=== PATIENT | female | born 1985 | race Caucasian/White ===

== ENCOUNTER 2016-10-14 23:52 | Emergency (ER) | payer MEDICAID, OTHER, SELFPAY ==
[~2016-10-14] VITALS: Ht 154.9 cm; Wt 66.7 kg
[~2016-10-14 23:52] MED LIST: FOLI1TAB86 PO; MAGICMW SS; MULTTAB6 PO; NO MEDS; NYST50SS PO; RISP0.5T3 PO; THIA100T PO; TRAZ50TA2 PO; ZIPR20INJ PO; ZOLO50TA PO
[2016-10-14 23:53] VITALS: BP 136/78
[2016-10-15] MEDS ORDERED: FLAG500T PO (00:09)
[2016-10-15] MEDS ORDERED: NEXP1IMP SC (00:09)
[2016-10-15] MEDS ORDERED: FLUORESCEIN OPHTH 1 MG STRIP OD ONE (01:15)
[2016-10-15] MEDS ORDERED: PROPARACAINE 0.5% OPHTH SOL 15ML OU ONE (01:15)
[2016-10-15] MEDS ORDERED: ACETAMINOPHEN TAB 650MG DOSE (2X325MG) PO ONE (01:15)
== END 2016-10-15 03:58 | disposition home or self-care (01) ==
LOC: M ED 10-15 01:25
DX: S05.01XA Injury of conjunctiva and corneal abrasion without foreign body, right eye, initial encounter (principal); X58.XXXA Exposure to other specified factors, initial encounter; Y92.099 Unspecified place in other non-institutional residence as the place of occurrence of the external cause; Y93.89 Activity, other specified; Y99.9 Unspecified external cause status

== ENCOUNTER → 2017-08-07 | Outpatient (CLI) | payer MEDICAID, OTHER | LOC: M LRY 13:46 | DX: M79.89 Other specified soft tissue disorders (principal) ==

== ENCOUNTER 2017-12-16 07:30 | Inpatient (IN) | payer OTHER, MEDICAID ==
[2017-12-16] MEDS: NS 1,000 ML IV (08:15)
[2017-12-16 08:17] LABS: HEMATOCRIT 37.4 % (36.0-47.0); HEMOGLOBIN 13.2 g/dl (12.0-15.5); MEAN CORPUSCULAR HEMOGLOBIN 33.4 pg (27.0-33.0); MEAN CORPUSCULAR HGB CONC 35.3 g/dl (32.0-36.5); MEAN CORPUSCULAR VOLUME 94.7 fl (80.0-96.0); PLATELET COUNT, AUTOMATED 263 10^3/uL (150-450); RED BLOOD COUNT 3.95 10^6/uL (4.00-5.40); RED CELL DISTRIBUTION WIDTH 13.6 % (11.5-14.5); WHITE BLOOD COUNT 14.8 10^3/uL (4.0-10.0)
[2017-12-16] MEDS ORDERED: ISOVUE-370 76% 100ML VIAL (Q9967) As Ordered (08:31)
[2017-12-16 08:37] LABS: CONTROL LINE HCG INT CTR LINE PRESENT; HCG, SERUM QUALITATIVE NEGATIVE (NEGATIVE)
[2017-12-16 08:42] LABS: AMPHETAMINES LEVEL URINE NEGATIVE (NEGATIVE); BARBITURATES URINE NEGATIVE (NEGATIVE); BENZODIAZEPINES URINE NEGATIVE (NEGATIVE); CANNABINOIDS URINE NEGATIVE (NEGATIVE); COCAINE METABOLITE URINE NEGATIVE (NEGATIVE); METHADONE URINE NEGATIVE (NEGATIVE); OPIATES URINE NEGATIVE (NEGATIVE); PHENCYCLIDINE URINE NEGATIVE (NEGATIVE)
[2017-12-16] MEDS: ADACEL/BOOSTRIX VACCINE (DIPHTH/PERTUSS/ACELL/TETANUS)0.5ML SYR (90715) IM (08:44)
[2017-12-16 08:53] LABS: ALBUMIN 4.2 GM/DL (3.2-5.2); ALBUMIN/GLOBULIN RATIO 1.35 (1.00-1.93); ALKALINE PHOSPHATASE 44 U/L (45-117); ALT/SGPT 30 U/L (12-78); ANION GAP 9 MEQ/L (8-16); AST/SGOT 35 U/L (7-37); BILIRUBIN,DIRECT 0.1 MG/DL (0.0-0.2); BILIRUBIN,TOTAL 0.4 MG/DL (0.2-1.0); BLOOD UREA NITROGEN 8 MG/DL (7-18); CALCIUM LEVEL 8.5 MG/DL (8.5-10.1); CARBON DIOXIDE LEVEL 24 MEQ/L (21-32); CHLORIDE LEVEL 113 MEQ/L (98-107); CREATININE FOR GFR 0.65 MG/DL (0.55-1.30); ETHYL ALCOHOL (ETHANOL) 0.226 % (0.000-0.010); GLOMERULAR FILTRATION RATE > 60.0 (>60); GLUCOSE, FASTING 87 MG/DL (70-100); POTASSIUM SERUM 3.8 MEQ/L (3.5-5.1); SODIUM LEVEL 146 MEQ/L (136-145); THYROID STIMULATING HORMONE 0.838 uIU/ML (0.358-3.740); TOTAL PROTEIN 7.3 GM/DL (6.4-8.2)
[2017-12-16 08:55] LABS: ACETAMINOPHEN LEVEL < 2.0 UG/ML (10.0-30.0)
[2017-12-16] MEDS: ceFAZolin SOD 1 GM in D5W MINI-BAG PLUS 50 ML IV (08:59)
[2017-12-16] MEDS: MORPHINE 4 MG/ML 1ML VIAL/SYRINGE (J2270) IV (09:15)
[2017-12-16] MEDS ORDERED: ISOVUE-300 61% 50ML VIAL (Q9967) As Ordered (10:21)
[2017-12-16] MEDS: LIDOCAINE 1% MDV 20ML VIAL SC (11:30)
[2017-12-16] MEDS ORDERED: MAALOX 30 ML SUSP *UDC PO (20:15)
[2017-12-16] MEDS ORDERED: LORazepam 2 MG TAB PO (20:15)
[2017-12-16] MEDS ORDERED: MOM 30ML SUSPENSION UDC PO (20:15)
[2017-12-16] MEDS: THIAMINE 100 MG TAB PO (21:00)
[2017-12-17] MEDS: MULTIVITAMINS/MINERALS THERAP 1 TAB PO (09:43)
[2017-12-17] MEDS: FOLIC ACID 1 MG TAB PO (09:43)
[2017-12-17] MEDS: NICOTINE 21MG/24HR 1 EA TRANSDERMAL TD (09:43)
[2017-12-17] MEDS: THIAMINE 100 MG TAB PO ×2 (09:43→20:43)
[2017-12-17] MEDS: ACETAMINOPHEN TAB 650MG DOSE (2X325MG) PO (09:48)
[2017-12-17] MEDS: ERYTHROMYCIN OPHTH OINT OS ×3 (12:15→20:44)
[2017-12-17] MEDS: VENLAFAXINE **XR** 75MG CAPSULE PO (15:41)
[2017-12-17] MEDS: PROPRANOLOL 10 MG TAB PO ×2 (17:00→20:43)
[2017-12-17] MEDS: NALTREXONE 50 MG TAB PO (20:43)
[2017-12-17] MEDS: traZODone 50 MG TAB PO (22:31)
[2017-12-18] MEDS: THIAMINE 100 MG TAB PO ×2 (08:25→20:33)
[2017-12-18] MEDS: MULTIVITAMINS/MINERALS THERAP 1 TAB PO (08:25)
[2017-12-18] MEDS: ERYTHROMYCIN OPHTH OINT OS ×3 (08:25→20:37)
[2017-12-18] MEDS: FOLIC ACID 1 MG TAB PO (08:25)
[2017-12-18] MEDS: VENLAFAXINE **XR** 75MG CAPSULE PO (08:25)
[2017-12-18] MEDS: ACETAMINOPHEN TAB 650MG DOSE (2X325MG) PO (08:26)
[2017-12-18] MEDS: NICOTINE 21MG/24HR 1 EA TRANSDERMAL TD (08:26)
[2017-12-18] MEDS: PROPRANOLOL 10 MG TAB PO ×3 (08:28→20:33)
[2017-12-18] MEDS: NALTREXONE 50 MG TAB PO (20:33)
[2017-12-18] MEDS: traZODone 50 MG TAB PO (21:31)
[2017-12-19] MEDS: THIAMINE 100 MG TAB PO (08:34)
[2017-12-19] MEDS: MULTIVITAMINS/MINERALS THERAP 1 TAB PO (08:34)
[2017-12-19] MEDS: PROPRANOLOL 10 MG TAB PO (08:34)
[2017-12-19] MEDS: FOLIC ACID 1 MG TAB PO (08:34)
[2017-12-19] MEDS: VENLAFAXINE **XR** 75MG CAPSULE PO (08:35)
[2017-12-19] MEDS: ERYTHROMYCIN OPHTH OINT OS (08:35)
[2017-12-19] MEDS: NICOTINE 21MG/24HR 1 EA TRANSDERMAL TD (08:35)
== END 2017-12-19 13:00 | disposition home or self-care (01) | DRG 880 ==
LOC: M ED 07:30 → M ED INP 16:56 → M PSY 18:25
DX: F41.1 Generalized anxiety disorder (principal); R45.851 Suicidal ideations; E87.0 Hyperosmolality and hypernatremia; F32.9 Major depressive disorder, single episode, unspecified; F10.10 Alcohol abuse, uncomplicated; Z63.4 Disappearance and death of family member; Z79.899 Other long term (current) drug therapy; F17.200 Nicotine dependence, unspecified, uncomplicated; H10.9 Unspecified conjunctivitis; Z88.2 Allergy status to sulfonamides

== ENCOUNTER → 2023-08-30 | Outpatient (CLI) | payer OTHER ==
[~2023-08-30] MED LIST changes: +ETON68IM SC; +FLAG500T PO; +NALT50TA4 PO; +PARA1IUD IU; +PROP10TA55 PO; +TRAZ1TAB10 PO; +VENL75CA47 PO
== END ==
LOC: M PLAIMG 07:55
PROVIDERS: ATTEND Physician Assistant Medical
DX: R51.9 Headache, unspecified (principal); Z87.820 Personal history of traumatic brain injury